=== PATIENT | female | born 1960 | race Caucasian/White ===

== ENCOUNTER 2020-06-28 15:16 | Emergency (ER) | payer MEDICARE, SELFPAY ==
--- NOTE | ~2020-06-28 | XR_ITS ---
EXAMINATION: XR chest 1V portable EXAM DATE: 06/28/2020 16:07 INDICATION: Left-sided chest pain to breast and shoulder blade. History hypertension. TECHNIQUE: Portable AP frontal chest x-ray was obtained. Comparison is made to prior examination from 11/03/2006. FINDINGS: The lungs are clear. There are no pleural effusions. The cardiomediastinal silhouette is within normal limits. There is no pneumothorax suspected. There are mild bony degenerative changes. IMPRESSION: Unremarkable chest x-ray exam. Reviewed, dictated and finalized at location A. TH COORDINATOR
--- NOTE | 2020-06-28 15:21 | ECG_ITS ---
Measurements Intervals [place] Rate: 89 P: 41 MI: 145 QRS: 37 QRSD: 92 T: 34 QT: 366 QTc: 446 Interpretive Statements SINUS RHYTHM BASELINE ARTIFACT- I, II, III, AVR, AVL, AVF, V5-V6 NORMAL ECG Electronically Signed On 06-28-2020 15:33:12 ADJUNCT PROFESSOR OF ENGLISH by Benjamin Alicia D.O.
[2020-06-28 15:22] VITALS: BP 175/96; PULSE 84; RESP 18; TEMP 36.7; O2SAT 98
[2020-06-28 15:28] VITALS: PULSE 89
[2020-06-28 15:49] LABS: Basophils Absolute Auto 0.1 K/mm3 (0.0-0.1); Basophils Percent Auto 0.5 % (0.2-1.2); Eosinophils Absolute Auto 0.2 K/mm3 (0-0.3); Eosinophils Percent Auto 1.8 % (0-4.4); Immature Granulocyte Absolute 0.02 K/mm3 (0.00-0.031); Immature Granulocyte Percent A 0.2 % (0-0.5); Lymphocytes Absolute Auto 3.18 K/mm3 (0.9-3.2); Lymphocytes Percent Auto 31.9 % (18.3-44.2); Mean Corpuscular HGB Conc 33.3 g/dl (32-36); Mean Corpuscular Hemoglobin 27.1 pg (26-34); Mean Corpuscular Volume 81.3 fl (80-100); Mean Platelet Volume 9.1 fl (7.4-10.4); Monocytes Absolute Auto 0.5 K/mm3 (0.1-0.6); Monocytes Percent Auto 5.2 % (2.6-8.5); Neutrophils Percent Auto 60.4 % (45.5-73.1); Platelet Count Result 395 k/mm3 (150-375); Red Cell Distribution Width 15.5 % (11.5-14.5)
[2020-06-28 16:01] LABS: Alanine Aminotransferase 16 U/L (4-35); Albumin Level 4.3 g/dL (3.5-5.1); Alkaline Phosphatase 137 U/L (38-126); Anion Gap 10 mmol/L (8-16); Aspartate Amino Transferase 25 U/L (14-36); Bilirubin,Total 0.5 mg/dL (0.2-1.3); Blood Urea Nitrogen 20 mg/dL (7-17); Calcium 9.3 mg/dL (8.4-10.2); Carbon Dioxide 29 mmol/L (22-30); Chloride 98 mmol/L (98-107); Estimated CRCL calculation 65 ml/min; Estimated Glomerular Filt Rate > 60; Glucose 156 mg/dL (65-105); Potassium 3.5 mmol/L (3.4-5.0); Sodium 137 mmol/L (137-145)
[2020-06-28 16:05] LABS: Prothrombin Time 13.7 Seconds (11.1-14.7)
[2020-06-28 16:06] LABS: Partial Thromboplastin Time 33.9 SECONDS (22.3-36.8)
--- NOTE | 2020-06-28 16:07 | ED.CHESTPAIN ---
HPI - Chest Pain General Chief Complaint: Chest Pain Stated Complaint: chest pain since Time Seen by Provider: 06/28/20 15:39 History of Present Illness HPI narrative: 59 yo femae w/ h/o htn presents to the ED for chest pain. She has had intermittent chest pain for a few days. Left breast radiating to the left shoulder and neck. Dull ache. Feels like muscle strain. No associated symptoms. She does report strong family history of cardiovascular disease. Related Data Allergies Allergy/AdvReac Type Severity Reaction Status Date / Time No Known Allergies Allergy Mild Verified 06/28/20 15:28 Review of Systems Review of Systems: All systems reviewed & are unremarkable except as noted in HPI and below Constitutional: Constitutional: Denies chills and Denies fever(s) Cardiovascular: Cardiovascular: Reports chest pain Respiratory: Respiratory: Denies cough and Denies dyspnea Gastrointestinal: Gastrointestinal: Denies abdominal pain, Denies nausea and Denies vomiting Genitourinary: Genitourinary: Denies hematuria and Denies dysuria Musculoskeletal: Musculoskeletal: Reports back pain Neurologic: Denies dizziness and Denies weakness Psychiatric: Psychiatric: Reports anxiety PMFSH Past Medical History Medical History Hypertension Family History Family History Father Family history of hepatitis Family history of primary malignant neoplasm of liver Family history of heart disease in male family member before age 55 Mother Family history of diabetes mellitus in first degree relative Family history of lung cancer Sibling Family history of primary malignant neoplasm of liver Social History Social History Smoking status: Never smoker Gender identity (if verbalized by the patient): Female Exam Const: General: healthy appearing, no acute distress and alert Nutritional Appearance: obese Orientation/consciousness: patient oriented x3 HENMT: Head: normal to inspection Neck: Neck: normal visual inspection Chest: Chest palpation & inspection: tenderness sternoclavicular joint on the left Resp: Effort & Inspection: normal respiratory effort Auscultation: clear to auscultation bilaterally Cardio: Rate: regular rate Rhythm: regular rhythm GI: GI Palp: Yes Soft to palpation and No Tenderness to palpation present (GI) Back/Spine/Pelvis: Other: tender at the medial portion of the left scapula Skin: General skin exam: normal color Neuro: General: patient oriented x3, moves all extremities and CN's II-XI intact bilaterally Speech: normal speech Course Vital Signs Vital signs: Vital Signs Temperature 36.7 C 06/28/20 15:22 Pulse Rate 84 06/28/20 15:22 Respiratory Rate 18 06/28/20 15:22 Blood Pressure 175/96 H 06/28/20 15:22 Pulse Oximetry 98 06/28/20 15:22 Temperature 36.7 C 06/28/20 15:22 Pulse Rate 73 06/28/20 16:42 Respiratory Rate 19 06/28/20 16:42 Blood Pressure 145/80 H 06/28/20 16:42 Pulse Oximetry 97 06/28/20 16:42 MDM - Chest Pain Differential Diagnosis Differential diagnosis: Likely atypical chest pain, costochondritis and other (pneumonia, muscle strian) Medical Records Data Attestation: I reviewed the patient's medical records. Lab Data Attestation: I reviewed the patient's lab results. Result diagrams: 06/28/20 15:42 06/28/20 15:42 Labs: Lab Results 06/28/20 06/28/20 06/28/20 Range/Units 15:42 15:42 15:42 WBC 10.0 (4.5-10.0) K/mm3 RBC 4.80 (4.2-5.4) M/mm3 Hgb 13.0 (12.0-15.0) g/dL Hct 39.0 (37.0-47.0) % MCV 81.3 (80-100) fl MCH 27.1 (26-34) pg MCHC 33.3 (32-36) g/dl RDW 15.5 H (11.5-14.5) % Plt Count 395 H (150-375) k/mm3 MPV 9.1 (7.4-10.4) fl Immature Gran % (Auto) 0.2 (0-0.5) %
[2020-06-28 16:12] LABS: Troponin I < 0.012 ng/mL (0.000-0.034)
[2020-06-28 16:42] VITALS: BP 145/80; PULSE 73; RESP 19; O2SAT 97
== END 2020-06-28 16:43 | disposition home or self-care (01) ==
PROVIDERS: Emergency Medicine; Emergency Provider Emergency Medicine; PCP Family Medicine
DX: R07.89 Other chest pain (principal); I10 Essential (primary) hypertension
CPT/HCPCS: 36415; 71045; 80053; 84484; 85025; 85610; 85730; 93005; 99284

== ENCOUNTER 2020-11-09 13:30 | Outpatient (CLI) | payer MEDICARE, SELFPAY ==
--- NOTE | ~2020-11-09 | XR_ITS ---
EXAMINATION: XR foot RT standing 2V DATE: 11/09/2020 14:24 INDICATION: Unspecified osteoarthritis TECHNIQUE: Dorsoplantar and lateral views of the right foot were obtained. COMPARISON: None. FINDINGS: Mild pes planus. No fracture. Suture anchors at the lateral malleolus likely for prior lateral ankle ligament repair. Minimal to mild osteoarthritis at the talonavicular, first metatarsophalangeal and a few tarsal metatarsal and interphalangeal joints. No erosions to suggest inflammatory arthritis. Sma ll plantar calcaneal spur. IMPRESSION: 1. Mild pes planus and minimal to mild polyarticular osteoarthritis in the right foot. No acute osseo us abnormality. 2. Suture anchors at the tip of the lateral malleolus likely related to prior lateral ankle ligament repair. Reviewed, dictated and finalized at location A. IMPRESSION: 1. Mild pes planus and minimal to mild polyarticular osteoarthritis in the righ t foot. No acute osseous abnormality. 2. Suture anchors at the tip of the lateral malleolus likely related to prior l ateral ankle ligament repair.
--- NOTE | ~2020-11-09 | XR_ITS ---
XR knee RT min 4V 11/09/2020 14:24 Indication: Osteoarthritis Procedure: 4 views right knee Comparison: No prior studies for comparison. Findings: There is mild osteoarthritis of the right knee. No fracture or traumatic malalignment. No s ignificant joint effusion. Impression: 1: Mild tricompartment osteoarthritis of the right knee. Reviewed, dictated and finalized at location B. Impression: 1: Mild tricompartment osteoarthritis of the right knee.
--- NOTE | ~2020-11-09 | XR_ITS ---
XR knee LT min 4V 11/09/2020 14:24 Indication: Left knee pain Procedure: 4 views left knee Comparison: No prior studies for comparison. Findings: There is mild tricompartment osteoarthritis of the left knee. No significant effusion. Smal l loose bodies superior to the patellofemoral compartment. No acute fracture or traumatic malalignmen t. No foreign bodies. Impression: 1: Mild tricompartment osteoarthritis of the left knee. Reviewed, dictated and finalized at location B. Impression: 1: Mild tricompartment osteoarthritis of the left knee.
--- NOTE | ~2020-11-09 | XR_ITS ---
EXAMINATION: XR lumbar spine min 4V, XR sacroiliac joints min 3V DATE: 11/09/2020 14:24 INDICATION: Osteoarthritis TECHNIQUE: 1. Anteroposterior, lateral, left and right oblique and cone-down lateral lumbosacral views of the pako mbar spine were obtained]. 2. Anteroposterior and left and right oblique views of the bilateral sacroiliac joints were obtained. COMPARISON: None. FINDINGS: Alignment is normal. Vertebral body heights are normal. Mild disc height loss and 1910, T10-T11 and T 11-T12. Lumbar disc heights are normal. No pars interarticularis defects. Moderate bilateral facet os teoarthritis at L5-S1. Mild osteoarthritis in the more cephalad lumbar spine. Sacrum and bilateral sa croiliac joints are unremarkable. No erosions or subarticular sclerosis to suggest inflammatory sacro iliitis. Mild bilateral hip osteoarthritis with marginal osteophytes along the bilateral acetabula. IMPRESSION: 1. Mild lower thoracic spondylosis and mild lumbar and moderate lumbosacral facet osteoarthritis. 2. Normal bilateral sacroiliac joints. Reviewed, dictated and finalized at location A. IMPRESSION: 1. Mild lower thoracic spondylosis and mild lumbar and moderate lumbosacral fac et osteoarthritis. 2. Normal bilateral sacroiliac joints.
--- NOTE | ~2020-11-09 | XR_ITS ---
EXAMINATION: HAND-CHIP ARTHRITIS 3+VIEWS DATE: 11/09/2020 14:24 INDICATION: Unspecified osteoarthritis TECHNIQUE: Posteroanterior, lateral, and oblique views of the left and of the right hands as well as a ballcatchers view of both hands were obtained. COMPARISON: None. FINDINGS: Bone alignment is normal at both hands. No fracture. Minimal to mild polyarticular osteoarthritis at multiple bilateral interphalangeal joints with distal predominance. Chronic cystic changes at the uln ar side of the proximal lunate on both the left and right. No erosions to suggest inflammatory arthri tis. IMPRESSION: 1. Minimal to mild polyarticular osteoarthritis at the bilateral interphalangeal joints with distal p redominance. 2. Cystic change at the ulnar side of the proximal lunate on both the left and right, a typical locat ion for cystic change in the setting of ulnocarpal impaction. Reviewed, dictated and finalized at location A. IMPRESSION: 1. Minimal to mild polyarticular osteoarthritis at the bilateral interphalangea l joints with distal predominance. 2. Cystic change at the ulnar side of the proximal lunate on both the left and right, a typical location for cystic change in the setting of ulnocarpal impact ion.
--- NOTE | ~2020-11-09 | XR_ITS ---
EXAMINATION: XR foot LT standing 2V DATE: 11/09/2020 14:24 INDICATION: Unspecified osteoarthritis TECHNIQUE: Weight bearing dorsal plantar and lateral views of the left foot were obtained. COMPARISON: None. FINDINGS: Mild pes planus. Alignment is otherwise normal. No fracture. Mild osteoarthritis at the first metatar sophalangeal and a few tarsal metatarsal and interphalangeal joints. No erosions to suggest inflammat ory arthritis. Small plantar calcaneal spur. Soft tissues are unremarkable. IMPRESSION: 1. Mild pes planus and mild polyarticular osteoarthritis in the mid and forefoot. Reviewed, dictated and finalized at location A. IMPRESSION: 1. Mild pes planus and mild polyarticular osteoarthritis in the mid and forefoo t.
== END 2020-11-09 13:31 | disposition home or self-care (01) ==
PROVIDERS: PCP Family Medicine; Visit Provider Internal Medicine
DX: E55.9 Vitamin D deficiency, unspecified (principal); M89.49 Other hypertrophic osteoarthropathy, multiple sites; M47.894 Other spondylosis, thoracic region; M19.041 Primary osteoarthritis, right hand; M19.042 Primary osteoarthritis, left hand; M19.071 Primary osteoarthritis, right ankle and foot; M19.072 Primary osteoarthritis, left ankle and foot; M21.42 Flat foot [pes planus] (acquired), left foot; M21.41 Flat foot [pes planus] (acquired), right foot; M17.0 Bilateral primary osteoarthritis of knee
CPT/HCPCS: 72110; 72202; 73130; 73564; 73620

== ENCOUNTER 2021-06-22 14:58 | Emergency (ER) | payer MEDICARE, SELFPAY ==
--- NOTE | ~2021-06-22 | XR_ITS ---
EXAMINATION: XR chest 1V portable EXAM DATE: 06/22/2021 16:05 INDICATION: cough TECHNIQUE: Portable AP frontal chest x-ray was obtained. Comparison is made to prior examination from 06/28/2020. FINDINGS: Small to moderate amount of bilateral ill-defined mid and lower lung zone airspace disease, differential diagnosis including pneumonia, COVID pneumonia, edema. No pneumothorax or pleural effus ion. Cardiomediastinal silhouette is normal. There are no osseous abnormalities identified. IMPRESSION: Small to moderate amount of bilateral acute airspace disease. Reviewed, dictated and finalized at location A. SPREADER OPERATOR
[2021-06-22 15:08] VITALS: BP 112/74; PULSE 78; RESP 17; TEMP 36.9; O2SAT 98
[2021-06-22 16:00] VITALS: BP 121/88; PULSE 75; RESP 16; O2SAT 96
[2021-06-22 16:28] LABS: Basophils Percent Auto 0.4 % (0.2-1.2); Hemoglobin 12.7 g/dL (12.0-15.0); Immature Granulocyte Absolute 0.02 K/mm3 (0.00-0.031); Immature Granulocyte Percent A 0.4 % (0-0.5); Lymphocytes Absolute Auto 0.71 K/mm3 (0.9-3.2); Lymphocytes Percent Auto 14.1 % (18.3-44.2); Mean Corpuscular HGB Conc 32.6 g/dl (32-36); Mean Corpuscular Hemoglobin 26.8 pg (26-34); Mean Corpuscular Volume 82.3 fl (80-100); Mean Platelet Volume 9.4 fl (7.4-10.4); Monocytes Absolute Auto 0.3 K/mm3 (0.1-0.6); Monocytes Percent Auto 6.6 % (2.6-8.5); Neutrophils Absolute Auto 3.9 K/mm3 (1.3-6.7); Neutrophils Percent Auto 78.5 % (45.5-73.1); Platelet Count Result 228 k/mm3 (150-375); Red Blood Count 4.74 M/mm3 (4.2-5.4); Red Cell Distribution Width 15.9 % (11.5-14.5)
[2021-06-22 16:39] LABS: Alanine Aminotransferase 38 U/L (4-35); Albumin Level 4.3 g/dL (3.5-5.1); Alkaline Phosphatase 153 U/L (38-126); Anion Gap 9 mmol/L (8-16); Aspartate Amino Transferase 36 U/L (14-36); Bilirubin,Total 0.4 mg/dL (0.2-1.3); Blood Urea Nitrogen 11 mg/dL (7-17); Calcium 8.9 mg/dL (8.4-10.2); Carbon Dioxide 29 mmol/L (22-30); Chloride 96 mmol/L (98-107); Estimated Glomerular Filt Rate > 60; Glucose 153 mg/dL (65-110); Potassium 3.1 mmol/L (3.4-5.0); Sodium 134 mmol/L (137-145)
[2021-06-22] MEDS: SODIUM CHLORIDE 0.9% IV 1,000 ML 999 ML IV CONT (16:40)
[2021-06-22 17:00] VITALS: BP 117/63; PULSE 68; RESP 15; O2SAT 99
--- NOTE | 2021-06-22 17:27 | ED.WEAKNESS ---
HPI - Weakness General Chief complaint: Weakness Stated complaint: COVID +, weakness Time Seen by Provider: 06/22/21 15:22 History of Present Illness HPI Narrative: Patient is a 60-year-old female who presents ER with fatigue related to her COVID-19 illness. Patient underwent rapid antigen testing and also had a confirmatory PCR sent today. She has been in close contact with her granddaughter who is also had a positive PCR for COVID-19. Over the last 3 to 4 days patient has been having cough and fatigue as well as subjective fevers. No chest pain or chest pressure. She does not take any medications. She does report she has mild nausea associated with this. No vomiting. Endorses anorexia. Patient is unvaccinated against Covid. Related Data Home Medications Medication Instructions Recorded Confirmed aspirin 81 mg chewable tablet 81 mg PO DAILY 08/06/20 11/07/20 cholecalciferol (vitamin D3) 1,250 1,250 mcg PO WEEKLY 08/06/20 11/07/20 mcg (50,000 unit) capsule citalopram 20 mg tablet 20 mg PO DAILY 08/06/20 11/07/20 losartan 100 mg tablet 100 mg PO DAILY 08/06/20 11/07/20 Allergies Allergy/AdvReac Type Severity Reaction Status Date / Time No Known Allergies Allergy Mild Verified 11/07/20 12:59 Review of Systems Review of Systems: All systems reviewed & are unremarkable except as noted in HPI and below Constitutional: Constitutional: Denies chills, Reports fatigue and Denies fever(s) ENT: Reports nasal congestion and Denies sore throat Cardiovascular: Cardiovascular: Denies chest pain, Denies rapid heart rate and Denies radiating jaw, neck or arm pain Respiratory: Respiratory: Reports cough, Denies dyspnea and Denies wheezing Gastrointestinal: Gastrointestinal: Denies abdominal pain, Reports nausea and Denies vomiting PMFSH Past Medical History Medical History Anxiety Arthritis Depression Hypertension Inflammatory arthritis Mitral valve prolapse Vitamin D deficiency Surgical History Surgical History H/O foot surgery History of ankle surgery Family History Family History Father Family history of hepatitis Family history of primary malignant neoplasm of liver Family history of heart disease in male family member before age 55 Mother Family history of diabetes mellitus in first degree relative Family history of lung cancer Sibling Family history of primary malignant neoplasm of liver Social History Social History Smoking status: Never smoker Gender identity (if verbalized by the patient): Female Exam Narrative: GENERAL: Well-appearing, well-nourished, and in no acute distress. HEAD: Normocephalic, atraumatic. EYES: PERRL and EOMI. CHEST: Clear to auscultation. No respiratory distress. HEART: Regular rate and rhythm. Normal peripheral pulses. ABDOMEN: Soft, nontender, nondistended. EXTREMITIES: Normal range of motion. No edema. SKIN: Warm, dry, no rash. NEURO: Alert and oriented x3. PSYCH: Normal mood and affect. Course Course Emergency Course: Patient informed results. Hydrated and given Zofran. Discharged with antiemetics. Recommend she contact her PCP to discuss potential outpatient treatment of monoclonal antibody therapy. Vital Signs Vital signs: Vital Signs Temperature 98.4 F 06/22/21 15:08 Pulse Rate 78 06/22/21 15:08 Respiratory Rate 17 06/22/21 15:08 Blood Pressure 112/74 06/22/21 15:08 Pulse Oximetry 98 06/22/21 15:08 Temperature 98.4 F 06/22/21 15:08 Pulse Rate 78 06/22/21 15:08 Respiratory Rate 17 06/22/21 15:08 Blood Pressure 112/74 06/22/21 15:08 Pulse Oximetry 98 06/22/21 15:08 MDM - Weakness Lab Data Result diagrams: 06/22/21 16:16 06/22/21 16:16 Labs: Lab Results 06/22/21 06/22/21
[2021-06-22 18:00] VITALS: BP 120/62; PULSE 72; RESP 17; O2SAT 98
[2021-06-22] MEDS: ONDANSETRON INJ 4 MG/2 ML VIAL IV PUSH (18:09)
== END 2021-06-22 18:20 | disposition home or self-care (01) ==
PROVIDERS: Emergency Provider Emergency Medicine; PCP Family Medicine
DX: U07.1 COVID-19 (principal); J12.82 Pneumonia due to coronavirus disease 2019; F41.9 Anxiety disorder, unspecified; M19.90 Unspecified osteoarthritis, unspecified site; F32.9 Major depressive disorder, single episode, unspecified; I10 Essential (primary) hypertension
CPT/HCPCS: 36415; 71045; 80053; 85025; 96361; 96374; 99284; J2405; J7030

== ENCOUNTER 2021-06-27 08:04 | Outpatient (RCR) | payer MEDICARE, SELFPAY ==
[2021-06-27 14:01] VITALS: BP 104/58; PULSE 94; RESP 18; TEMP 36.1; O2SAT 95
[2021-06-27] MEDS: FAMOTIDINE 20 MG TABLET PO (14:04)
[2021-06-27] MEDS: diphenhydrAMINE HCl CAP 25 MG CAPSULE PO (14:04)
[2021-06-27] MEDS: ACETAMINOPHEN 325 MG TABLET 650 MG PO (14:04)
[2021-06-27 15:18] VITALS: BP 121/70; O2SAT 97
== END 2021-06-27 16:00 ==
LOC: AMCINF 08:04
PROVIDERS: PCP Family Medicine; Visit Provider Internal Medicine Hematology & Oncology
DX: U07.1 COVID-19 (principal); I10 Essential (primary) hypertension
CPT/HCPCS: A9270; M0243; Q0244

== ENCOUNTER 2023-01-30 17:54 | Emergency (ER) | payer MEDICARE, SELFPAY ==
--- NOTE | ~2023-01-30 | XR_ITS ---
EXAM: XR wrist RT min 3V DATE: 01/30/2023 18:31 HISTORY: fall onto outstretched hand, swelling, bruising posteriorly . COMPARISON: 11/09/2020. FINDINGS: Normal mineralization. No fracture or dislocation. No lytic or blastic lesion. Joint space s are maintained. No erosion or periosteal change. Large area of posterior soft tissue swelling/hemat desi over the dorsal wrist within normal limits. IMPRESSION: No acute osseous finding in the right wrist. Reviewed, dictated and finalized at location K.
[2023-01-30 17:58] VITALS: BP 151/83; PULSE 82; RESP 18; TEMP 37; O2SAT 96
--- NOTE | 2023-01-30 18:41 | ED.UPPEXIN ---
HPI - Extremity Injury (Upper) General Chief Complaint: Extremity Injury, Upper Stated Complaint: Right arm injury Time Seen by Provider: 01/30/23 18:11 History of Present Illness HPI narrative: Patient is a 62-year-old female who presents ER with right wrist pain. She was letting her dog out when she tripped falling forwards. She tried to stop her self against the door jam. She shortly after developed pain in her right wrist on the dorsal aspect. Work-up lower she developed significant swelling of the she still maintains range of motion of the wrist and fingers. She has no numbness or tingling. Pulses are intact. Due to swelling though she felt she should be evaluated further. She has no other injuries from the fall. Related Data Home Medications Medication Instructions Recorded Confirmed aspirin 81 mg chewable tablet 81 mg PO DAILY 08/06/20 06/27/21 cholecalciferol (vitamin D3) 1,250 1,250 mcg PO WEEKLY 08/06/20 06/27/21 mcg (50,000 unit) capsule citalopram 20 mg tablet 20 mg PO DAILY 08/06/20 06/27/21 losartan 100 mg tablet 100 mg PO DAILY 08/06/20 06/27/21 Allergies Allergy/AdvReac Type Severity Reaction Status Date / Time No Known Allergies Allergy Mild Verified 01/30/23 18:39 Review of Systems Musculoskeletal: Musculoskeletal: Reports arthralgias, Reports joint swelling and Denies muscle cramps Integumentary/Breasts: Skin/Breast: Denies erythema and Denies rash Neurologic: Denies focal weakness and Denies numbness PMFSH Past Medical History Medical History Anxiety Arthritis Depression Hypertension Inflammatory arthritis Mitral valve prolapse Vitamin D deficiency Surgical History Surgical History H/O foot surgery History of ankle surgery Family History Family History Father Family history of hepatitis Family history of primary malignant neoplasm of liver Family history of heart disease in male family member before age 55 Mother Family history of diabetes mellitus in first degree relative Family history of lung cancer Sibling Family history of primary malignant neoplasm of liver Social History Social History Smoking status: Never smoker Gender identity (if verbalized by the patient): Female Spiritual care concerns: No Exam Narrative: GENERAL: Well-appearing, well-nourished, and in no acute distress. HEAD: Normocephalic, atraumatic. ENT: Mucous membranes moist. EXTREMITIES: Normal range of motion. No edema. Right wrist with swelling over the dorsal aspect proximal to the wrist. Bruising noted. SKIN: Warm, dry, no rash. NEURO: No focal deficits. Alert and oriented x3. PSYCH: Normal mood and affect. Course Course Emergency Course: No fracture. Patiently placed in a volar splint to limit range of motion and also apply pressure to the swollen area to decrease swelling. Instructed her to wear this 2 to 3 days and then she can switch this to an Moe wrap. Patient verbalized understanding treatment plan. She is not having pain does not require any pain control. Vital Signs Vital signs: Vital Signs Temperature 98.6 F 01/30/23 17:58 Pulse Rate 82 01/30/23 17:58 Respiratory Rate 18 01/30/23 17:58 Blood Pressure 151/83 H 01/30/23 17:58 Pulse Oximetry 96 01/30/23 17:58 Oxygen Delivery Room Air 01/30/23 17:58 Temperature 98.6 F 01/30/23 17:58 Pulse Rate 82 01/30/23 17:58 Respiratory Rate 18 01/30/23 17:58 Blood Pressure 151/83 H 01/30/23 17:58 Pulse Oximetry 96 01/30/23 17:58 Oxygen Delivery Room Air 01/30/23 17:58 Procedures Orthopedic Splinting/Casting Injury #1: Splinting/Casting Date: 01/30/23 Splinting/Casting Time: 18:56 Upper Extremity Injury Location: wrist Upper Extremity Im
== END 2023-01-30 19:22 | disposition home or self-care (01) ==
PROVIDERS: Emergency Provider Emergency Medicine; PCP Family Medicine
DX: S63.501A Unspecified sprain of right wrist, initial encounter (principal); S60.211A Contusion of right wrist, initial encounter; I10 Essential (primary) hypertension; I34.1 Nonrheumatic mitral (valve) prolapse; E55.9 Vitamin D deficiency, unspecified; M19.90 Unspecified osteoarthritis, unspecified site; F41.9 Anxiety disorder, unspecified; F32.A Depression, unspecified; Z79.82 Long term (current) use of aspirin; W01.0XXA Fall on same level from slipping, tripping and stumbling without subsequent striking against object, initial encounter
CPT/HCPCS: 73110; 99283; A4565

== ENCOUNTER → 2023-02-18 12:29 | Outpatient (CLI) | payer MEDICARE, SELFPAY ==
--- NOTE | ~2023-02-18 | MR_ITS ---
MRI of the left knee Clinical history: Pain Technique: Coronal proton density and proton density-weighted images, sagittal proton-density and T2 fat-sat images, and axial proton-density fat-saturated images were acquired. Findings: Anterior and posterior cruciate ligaments are intact. Medial collateral ligament is intact. Possible chronic partial tearing at the proximal aspect of the fibular collateral ligament. Remainde r of the lateral collateral ligament complex is intact. Popliteus tendon is intact. There is complex tearing involving both horizontal and radial components involving the posterior horn and posterior root of the medial meniscus. No definite lateral meniscal tear seen. There is patchy high-grade chondromalacia the central aspect of the medial femoral condyle. There is moderate chondral thinning at the lateral joint line. There is diffuse grade IV chondromalacia of the patellofemoral compartment on both sides of the joint. Small tricompartmental osteophytes are presen t. Extensor mechanism is intact. Small joint effusion present. No Ignacio's cyst. Impression: Extensive complex tearing of the posterior horn of the medial meniscus, as detailed above. Possible chronic partial tearing at the proximal aspect of the fibular collateral ligament. Advanced osteoarthritic change of the patellofemoral and medial compartments. Mild degenerative ortiz e of the lateral compartment. Small joint effusion. Reviewed, dictated and finalized at location M. Impression: Extensive complex tearing of the posterior horn of the medial meniscus, as deta iled above. Possible chronic partial tearing at the proximal aspect of the fibular collater al ligament. Advanced osteoarthritic change of the patellofemoral and medial compartments. M ild degenerative change of the lateral compartment. Small joint effusion.
== END ==
PROVIDERS: PCP Nurse Practitioner Family; Visit Provider Nurse Practitioner Family
DX: S83.232A Complex tear of medial meniscus, current injury, left knee, initial encounter (principal); X58.XXXA Exposure to other specified factors, initial encounter; M25.462 Effusion, left knee; M17.12 Unilateral primary osteoarthritis, left knee
CPT/HCPCS: 73721

== ENCOUNTER 2023-10-19 11:00 | Emergency (ER) | payer OTHER, MEDICARE, SELFPAY ==
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
[2023-10-19 11:16] VITALS: BP 143/71; PULSE 75; RESP 18; TEMP 36.5; O2SAT 100
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
[2023-10-19 13:01] VITALS: BP 151/90; PULSE 65; RESP 15; O2SAT 100
[2023-10-19 14:51] VITALS: BP 131/77; PULSE 71; RESP 16; TEMP 36.8; O2SAT 99
== END 2023-10-19 14:53 | disposition home or self-care (01) ==
LOC: ANHED 14:43
PROVIDERS: Emergency Provider Emergency Medicine; PCP Nurse Practitioner Family
DX: S16.1XXA Strain of muscle, fascia and tendon at neck level, initial encounter (principal); F41.9 Anxiety disorder, unspecified; M19.90 Unspecified osteoarthritis, unspecified site; F32.A Depression, unspecified; I10 Essential (primary) hypertension; V89.2XXA Person injured in unspecified motor-vehicle accident, traffic, initial encounter
CPT/HCPCS: 70450; 72125; 99284

== ENCOUNTER 2024-03-09 14:00 | Outpatient (RCR) | payer OTHER, SELFPAY, MEDICARE ==
--- NOTE | 2023-11-30 15:58 | PCPTNOTE ---
pt did not show for today's evaluation appt.
--- NOTE | 2023-12-17 14:29 | OPREHPOC ---
Outpatient Therapy Plan of Care This is a Multidisciplinary Plan of Care that may contain components documented by all disciplines (PT, OT, and ST.) PT Problem 1 PT Problem #1 Knowledge Deficit PT Goal 1 Goal Lynn with HEP Target Visit 4 PT Problem 2 PT Problem #2 Pain PT Goal 1 Goal Report no pain greater than 2/10 with cervical rotation in the past 2 weeks Target Visit 8 PT Problem 3 PT Problem #3 Impaired Range of Motion PT Goal 1 Goal Demonstrate 50 degrees of cervical rotation ganesh to improve facet mobility and active field of vision Target Visit 8 PT Goal 2 Goal Demonstrate 30 degrees of cervical flexion without pain to reduce upper trapezius restriction Target Visit 8
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
--- NOTE | 2024-03-11 09:02 | PCPTNOTE ---
This treatment is being continued on visit number [id number] . Please see documentation on both accounts to view progress. Completed interventions, outcomes, and problems have been marked as Inactive to facilitate the copying of the Care plan routine for recurring accounts.
== END 2024-03-10 10:20 | disposition home or self-care (01) ==
LOC: ANHPT 14:00
PROVIDERS: PCP Family Medicine; Visit Provider Registered Nurse
DX: S16.1XXD Strain of muscle, fascia and tendon at neck level, subsequent encounter (principal)
CPT/HCPCS: 97012; 97014; 97110; 97140; 97161; 97530; G0283

== ENCOUNTER 2024-03-21 07:35 | Outpatient (RCR) | payer MEDICARE, SELFPAY ==
--- NOTE | 2024-03-11 09:03 | PCPTNOTE ---
This treatment is being continued on visit number [id number] Please see documentation on both accounts to view progress. Completed interventions, outcomes, and problems have been marked as Inactive to facilitate the copying of the Care plan routine for recurring accounts.
--- NOTE | 2024-03-16 12:37 | PCPTNOTE ---
Pt cancelled due randell santos.
--- NOTE | 2024-03-21 14:25 | PCPTNOTE ---
Pt no showed visit today. Called and left message of next appt day and time.
--- NOTE | 2024-03-31 15:12 | PCPTNOTE ---
pt called and canceled today's appt due to family emergency
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
--- NOTE | 2024-05-04 09:23 | PTOPDC ---
Assessment and note entered by Terri Polk, PT Discharge Report Assessment Status Discharge - Pt Not Present Diagnosis Cervical muscle strain, Rheumatoid arthritis ICD-10 Condition Codes (PT) Cervicalgia M54.2,M54.6,Pain in low back M54.50, M54.13 Onset 10/12/23 Subjective Information pt was not seen this date Assessment PT Clinical Summary Zoraida has not returned for any further treatment since the Reevaluation/progress report dated 04-07-24. Discharge PT due to not attending. The goals were not addressed. Plan of Care PT Services Indicated No
== END 2024-05-04 10:26 | disposition home or self-care (01) ==
LOC: ANHPT 07:35
PROVIDERS: PCP Family Medicine; Visit Provider Registered Nurse
DX: S16.1XXD Strain of muscle, fascia and tendon at neck level, subsequent encounter (principal)
CPT/HCPCS: 97014; 97110; 97140; G0283

== ENCOUNTER 2025-05-02 11:39 | Outpatient (CLI) | payer MEDICARE, SELFPAY ==
--- NOTE | ~2025-05-02 | XR_ITS ---
EXAMINATION: XR hand LT min 3V, 05/02/2025 11:46 CDT HISTORY: Localized swelling, mass and lump, left upper limb x 2 weeks COMPARISON: No comparisons available. Findings: No acute fracture or malalignment. No significant degenerative changes. Soft tissues unremarkable. Impression: No acute fracture or malalignment. Reviewed, dictated and finalized at location P. Impression: No acute fracture or malalignment.
== END 2025-05-02 11:40 | disposition home or self-care (01) ==
PROVIDERS: PCP Nurse Practitioner Family; Visit Provider Nurse Practitioner Family
DX: R22.32 Localized swelling, mass and lump, left upper limb (principal)
CPT/HCPCS: 73130